=== PATIENT | male | born 1990 | race Caucasian/White ===

== ENCOUNTER 2022-09-12 17:20 | Emergency (ER) | payer OTHER, SELFPAY ==
[2022-09-12] VITALS (11 sets, daily range): BP systolic 125–154; BP diastolic 67–131; PULSE 65–90; RESP 14–22; TEMP 36.4–36.5; O2SAT 87–100; BMI 27.5
--- NOTE | 2022-09-12 17:25 | ED.RN ---
PT STATES HIS INJURY IS WORK RELATED BUT HE DOES NOT WISH TO FILE WORKERS COMP. PT REQUESTS WORKERS AID.
[2022-09-12] MEDS: HYDROmorphone 1 MG/ML Syringe IV (17:37)
[2022-09-12] MEDS: Ondansetron ODT 4 MG Tablet PO (17:37)
--- NOTE | 2022-09-12 17:45 | RAD_ITS ---
EXAM: XR RIGHT ELBOW COMPLETE, 3 OR MORE VIEWS CLINICAL INDICATION: Injury/Pain TECHNIQUE: Frontal, lateral and oblique views of the right elbow. This report was created using [employer] report generation technology. COMPARISON: None. FINDINGS: BONES/JOINTS: Dislocation of the elbow. There is no displacement of the anterior or posterior fat pads. No acute fracture. No destructive or sclerotic lesions. SOFT TISSUES: Unremarkable. No soft tissue swelling or gas. No radiopaque foreign body. RAD/Elbow min 3 Views IMPRESSION: Dislocation of the elbow. Electronically Signed: Fredi Wren MD at 18:31 EDT ,
[2022-09-12] MEDS: Diphth,Pertuss(Acell),Tet Vac 0.5 ML Vial IM (18:05)
--- NOTE | 2022-09-12 18:07 | EDS_ITS ---
HPI HPI - Fall History of Present Illness Chief Complaint: Fall Detail of Chief Complaint: Patient fell from a plank. Informant: patient and EMS Occured/Mechanism Occurred: Hours Narrative: Roof height Pain/Injury Location: Right elbow Pain Location: upper extremity Quality of Pain: Dull, Aching and Throbbing Current Severity: Moderate Maximum Severity: Severe Worsened by: Movement Relieved by: Remain needing in present position of comfort Associated Symptoms Associated Symptoms: Positive for Parasthesias and Loss of function; Negative for Weakness, Inability to ambulate, Loss of consciousness or Amnesia Length of loss of consciousness: Negative Narrative Narrative: Patient is a healthy 32-year-old [id number] male. 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 The planks broke. He then hit a [address] He states he then hit the truck that was parked initially to where he was working and eventually the ground. He denies head trauma. He denies loss of consciousness. He denies being amnestic. He denies neck pain. He denies chest pain or shortness of breath. He denies low back pain. He denies lower extremity exam. Denies left upper extremity pain. He complains of right upper extremity pain and specifically is elbow. He is on no antithrombotic or anticoagulant. Tetanus is unknown. He denies allergies. He denies specifically allergy to eggs or soy products. Tetanus Immunization: Unknown Prior similar symptoms: No Recent Illness/Hospitalization: No PFSH PFSH Medical History no medical history no medical history Home Medications oxycodone-acetaminophen 5 mg-325 mg tablet 1 tab PO Q6H PRN PRN pain 5 days #20 TABLETS 09/12/22 [Rx Last Taken Unknown] Allergy/AdvReac Type Severity Reaction Status Date / Time No Known Allergies Allergy Verified 09/12/22 17:26 Surgical History (Updated 09/12/22 @ 17:26 by Le Jacobsen) History of appendectomy Surgical History no surgical history no surgical history Social History (Updated 09/12/22 @ 18:[address] Norman Rogers MD) household members: family Smoking Status: Never smoker substance use type: does not use ROS ROS ED Eyes Eyes: Denies blurry vision, change in vision or diplopia ENT ENT ED: Denies ear pain, rhinorrhea or sore throat Cardiovascular Cardiovascular: Denies chest pain or palpitations Respiratory/Chest Respiratory/Chest: Denies cough, dyspnea or dyspnea on exertion Gastrointestinal Gastrointestinal: Denies abdominal pain or vomiting Musculoskeletal Musculoskeletal: Reports other Details: Detailed in HPI narrative ; Denies arthralgias, back pain, myalgias or neck pain Integumentary Denies Abrasions Neurologic Neurologic: Reports paresthesias; Denies headache(s) Hematologic/Lymphatic Hematologic/Lymphatic: Denies easy bleeding or easy bruising EXAM Physical Exam Const Vital Signs: 09/12/22 17:21 09/12/22 17:28 09/12/22 18:31 Temperature 97.7 F L 97.7 F L 97.6 F L Temperature Source Oral Pulse Rate 68 68 Pulse Rate [1 (Initial Baseline)] Pulse Rate [2] Pulse Rate [3] Pulse Rate [4] Pulse Rate [5] Pulse Rate [6] Pulse Rate [7] Respiratory Rate 18 14 Respiratory Rate [1 (Initial Baseline)] Respiratory Rate [2] Respiratory Rate [3] Respiratory Rate [4] Respiratory Rate [5] Respiratory Rate [6] Respiratory Rate [7] Respiratory Effort Normal Non-Labored Respiratory Depth Normal Respiratory Pattern Normal Blood Pressure 138/84 H 143/82 H Blood Pressure [1 (Initial Baseline)] Blood Pressure [2] Blood Pressure [3] Blood Pressure [4] Blood Pressure [5] Blood Pressure [6] Blood Pressure [7] Blood Pressure Mean 102 Pulse Ox 100 100 99 Oxygen Delivery Method Room Air Room Air Nasal Cannula Oxygen Delivery Method [1 (Initial Baseline)] Oxygen Delivery Method [2] Oxygen Delivery Method [3] Oxygen Delivery Method [4] Oxygen Delivery Method [5] Oxygen Delivery Method [6] Oxygen Delivery Method [7] Oxygen Flow Rate (L/min) 2 Oxygen Flow Rate (L/min) [1 (Initial Baseline)] Oxygen Flow Rate (L/min) [2] Oxygen Flow Rate (L/min) [3] Oxygen Flow Rate (L/min) [4] Oxygen Flow Rate (L/min) [5] Oxygen Flow Rate (L/min) [6] Oxygen Flow Rate (L/min) [7] 09/12/22 18:31 09/12/22 18:58 09/12/22 19:06 Temperature Temperature Source Pulse Rate 65 Pulse Rate [1 (Initial Baseline)] 73 Pulse Rate [2] 76 Pulse Rate [3] 90 Pulse Rate [4] 84 Pulse Rate [5] 76 Pulse Rate [6] 68 Pulse Rate [7] 70 Respiratory Rate 18 Respiratory Rate [1 (Initial Baseline)] 20 H Respiratory Rate [2] 20 H Respiratory Rate [3] 22 H Respiratory Rate [4] 14 Respiratory Rate [5] 16 Respiratory Rate [6] 14 Respiratory Rate [7] 14 Respiratory Effort Respiratory Depth Respiratory Pattern Blood Pressure 127/70 H Blood Pressure [1 (Initial Baseline)] 154/78 H Blood Pressure [2] 154/78 H Blood Pressure [3] 153/131 H Blood Pressure [4] 153/131 H Blood Pressure [5] 140/78 H Blood Pressure [6] 125/67 H Blood Pressure [7] 125/67 H Blood Pressure Mean 89 Pulse Ox 99 Oxygen Delivery Method Nasal Cannula Room Air Oxygen Delivery Method [1 (Initial Baseline)] Nasal Cannula Oxygen Delivery Method [2] Nasal Cannula Oxygen Delivery Method [3] Non-Rebreather Oxygen Delivery Method [4] Non-Rebreather Oxygen Delivery Method [5] Non-Rebreather Oxygen Delivery Method [6] Nasal Cannula Oxygen Delivery Method [7] Nasal Cannula Oxygen Flow Rate (L/min) 98 Oxygen Flow Rate (L/min) [1 (Initial Baseline)] 24 Oxygen Flow Rate (L/min) [2] 26 Oxygen Flow Rate (L/min) [3] 6 Oxygen Flow Rate (L/min) [4] 15 Oxygen Flow Rate (L/min) [5] 15 Oxygen Flow Rate (L/min) [6] 3 Oxygen Flow Rate (L/min) [7] 3 09/12/22 19:03 09/12/22 19:08 09/12/22 20:15 Temperature Temperature Source Pulse Rate 76 Pulse Rate [1 (Initial Baseline)] Pulse Rate [2] Pulse Rate [3] Pulse Rate [4] Pulse Rate [5] Pulse Rate [6] Pulse Rate [7] Respiratory Rate 16 Respiratory Rate [1 (Initial Baseline)] Respiratory Rate [2] Respiratory Rate [3] Respiratory Rate [4] Respiratory Rate [5] Respiratory Rate [6] Respiratory Rate [7] Respiratory Effort Respiratory Depth Respiratory Pattern Blood Pressure 140/79 H Blood Pressure [1 (Initial Baseline)] Blood Pressure [2] Blood Pressure [3] Blood Pressure [4] Blood Pressure [5] Blood Pressure [6] Blood Pressure [7] Blood Pressure Mean 99 Pulse Ox 100 Oxygen Delivery Method Room Air Room Air Room Air Oxygen Delivery Method [1 (Initial Baseline)] Oxygen Delivery Method [2] Oxygen Delivery Method [3] Oxygen Delivery Method [4] Oxygen Delivery Method [5] Oxygen Delivery Method [6] Oxygen Delivery Method [7] Oxygen Flow Rate (L/min) Oxygen Flow Rate (L/min) [1 (Initial Baseline)] Oxygen Flow Rate (L/min) [2] Oxygen Flow Rate (L/min) [3] Oxygen Flow Rate (L/min) [4] Oxygen Flow Rate (L/min) [5] Oxygen Flow Rate (L/min) [6] Oxygen Flow Rate (L/min) [7] 09/12/22 21:32 09/12/22 22:09 09/12/22 23:13 Temperature Temperature Source Pulse Rate Pulse Rate [1 (Initial Baseline)] Pulse Rate [2] Pulse Rate [3] Pulse Rate [4] Pulse Rate [5] Pulse Rate [6] Pulse Rate [7] Respiratory Rate 16 17 18 Respiratory Rate [1 (Initial Baseline)] Respiratory Rate [2] Respiratory Rate [3] Respiratory Rate [4] Respiratory Rate [5] Respiratory Rate [6] Respiratory Rate [7] Respiratory Effort Respiratory Depth Respiratory Pattern Blood Pressure 139/79 H 135/92 H 128/83 H Blood Pressure [1 (Initial Baseline)] Blood Pressure [2] Blood Pressure [3] Blood Pressure [4] Blood Pressure [5] Blood Pressure [6] Blood Pressure [7] Blood Pressure Mean 99 106 98 Pulse Ox 98 99 99 Oxygen Delivery Method Room Air Room Air Room Air Oxygen Delivery Method [1 (Initial Baseline)] Oxygen Delivery Method [2] Oxygen Delivery Method [3] Oxygen Delivery Method [4] Oxygen Delivery Method [5] Oxygen Delivery Method [6] Oxygen Delivery Method [7] Oxygen Flow Rate (L/min) Oxygen Flow Rate (L/min) [1 (Initial Baseline)] Oxygen Flow Rate (L/min) [2] Oxygen Flow Rate (L/min) [3] Oxygen Flow Rate (L/min) [4] Oxygen Flow Rate (L/min) [5] Oxygen Flow Rate (L/min) [6] Oxygen Flow Rate (L/min) [7] Positive well nourished and well developed General Appearance ED: well developed and NAD HEENT Reports normocephalic and TM's normal bilaterally HEENT Narrative: There is no septal deviation hematoma. There is no dental trauma. There is no TMJ tenderness. There is no clinical findings of basilar skull fracture. atraumatic Eyes PERRL and EOMs intact bilaterally Eyes Narrative: There is no subconjunctival hemorrhage. There is no nystagmus. General Eye ED: Negative for pale conjunctiva or scleral icterus Neck full ROM, no lymphadenopathy and supple Neck Narrative: There is no midline tenderness. There is no step-off. Chest Wall inspection of chest normal and palpation of chest normal Resp normal respiratory effort, no retractions and clear to auscultation bilaterally Cardio regular rate, regular rhythm, S1 normal heart sound, S2 normal heart sound and no murmurs GI non-tender, non-distended and no masses GI Narrative: There is no tenderness specifically in the right and left costal margin region. There is no hepatosplenomegaly. Palpation: soft Back/Spine no CVA tenderness Extremity Extremity Narrative: Patient has a swollen and what appears to be deformed right elbow. Axillary, median, radial and ulnar function intact. Radial pulses palpable. Neuro oriented x3, CN's II-XII intact bilaterally, moves all extremities, no focal motor deficits and no sensory deficits noted [place] Coma Scale: document GCS findings Spontaneous Obeys Commands Oriented 15 Sensorium / Orientation: alert Motor Exam: strength 5/5 throughout Psych mental status grossly normal and thought process normal Skin Lesions: no lesions Rashes: no rashes MDM MDM MDM Narrative Medical decision making narrative: Per the [place] CT head rule and [place] rule imaging of the head is not indicated. Per Nexus criteria imaging of the neck is not required. Abdominal exam is benign. There is no evidence of abdominal trauma. Abdominal CT was not obtained. Imaging of the chest was not obtained since there is no evidence of trauma to the torso and there is no clinical findings to suspect pneumothorax. X-ray of the elbow was obtained. X-ray of the elbow reveals a posterior dislocation. Films were limited due to patient's position in splint. Since patient has no contraindication to deep sedation i.e. has not eaten since noon and last had water 2 hours prior to presentation he was consented for deep sedation using propofol. There is no allergy to soy products or egg products. He has had no prior complications. Consent form was signed. Orthopedic surgeon requested CT since the origin of the avulsed fragment is unknown and it is a significant fragment. Orthopedist was repaged. He had not heard back. We will discharge patient to home. Radiography Chest X-Ray - ED: Read by ED Physician (X-ray of the elbow is positive for dislocation. There is no evidence of fracture.) and - (Single view postreduction film was obtained. There is a displaced fragment of bone noted that was not noted on the original films. The site of avulsed fracture is undetermined.) Diagnostic Testing: Clinical Impression(s) from Imaging Studies Elbow X-Ray 09/12/22 17:45 IMPRESSION: Dislocation of the elbow. Electronically Signed: Fredi Wren MD at 18:31 EDT , Elbow X-Ray 09/12/22 19:05 IMPRESSION: There is a fracture fragment abutting the radial head. The donor site cannot be elucidated. Successful reduction. Electronically Signed: Fredi Wren MD at 19:22 EDT , Upper Extremity CT 09/12/22 20:03 IMPRESSION: There is a fracture fragment abutting the radial head. The donor site is the radial head. Electronically Signed: Fredi Wren MD at 20:50 EDT , Management Discussion w/another healthcare provider: Child Nutrition Manager (Spoke with orthopedist. Informed him that the patient had dislocation and the dislocation was reduced. After reviewing postreduction films patient is noted to have an avulsed fragment. Uncertain the origin of this fragment. Will update the orthopedist Dr. Ellison.) Treatment and Re-Evaluation Narrative: Patient reporting he feels worse. He is concerned he did something to his hip. Logrolling causes no discomfort. Is able to lift his leg up off the bed. He has no pain outpatient of the pelvis, right inguinal area or right greater trochanteric region. There is no bruising noted. There is no soft tissue swelling noted. Patient was informed he is sore because he fell from 10 feet height hitting multiple objects as he fell to the ground. Procedures Upper Extremity Splints Upper Extremity Splint: Plaster (Long arm posterior splint) Splint Fabrication: Fabricated Location: Right Procedural Sedation 1 (Initial Baseline): Consent Signed: Yes Any Problems With Anesthesia: No You/Your family experience fever (hyperthermia) w/anesthesia: No Sedation medication: Propofol Dose: 100 Route: IV Total Moderate Sedation Units: 14 (14 minutes total time) Mallampati Score: Class I ASA Classification: I Discharge Plan Triage Chief Complaint: Fall ED Provider: Norman Rogers Dx/Rx/DC Orders Clinical Impression: Closed fracture dislocation of right elbow, Injury due to fall, Abrasion of face, Contusion of multiple sites Instructions: ED Abrasion, ED Elbow Dislocation Prescriptions: New oxycodone-acetaminophen [oxycodone-acetaminophen] 5-325 mg tablet 1 tab PO Q6H PRN PRN (Reason: pain) 5 Days Qty: 20 0RF Primary Care Provider: Regis Fulton Referrals: Mario Cheung DO [[facility] Staff - Active Staff] - [address] Doctor,Out of [Non-Staff] - Activity Restrictions/Additional Instructions: Apply ice to areas of discomfort 6-10 times a day for the next 3 to 5 days. You will feel worse over the next 24 to 48 hours You will hurt in more places than you presently do Apply ice 20 to 30 minutes per application a minimum of 10 times to your right elbow. Disposition Disposition: Home, Self Care
[2022-09-12] MEDS: Propofol 200 MG/20 ML Vial IV BOLUS (18:30)
[2022-09-12] MEDS: HYDROmorphone 0.5 MG/0.5 ML SYRINGE IV ×2 (19:04→23:32)
--- NOTE | 2022-09-12 19:05 | RAD_ITS ---
STUDY: XR Elbow 2 Views REASON FOR EXAM: Male, 32 years old. POST REDUCTION. ONE IMAGE PER ER DOCTOR. TECHNIQUE: XR Elbow 2 Views RIGHT COMPARISON: Study done earlier. FINDINGS: There is a fracture fragment abutting the radial head. The donor site cannot be elucidated. Normal radiocapitellar and ulnotrochlear articulations. Anterior humeral line and radiocapitellar line are preserved. Plaster cast in place. The soft tissue structures are unremarkable. RAD/Elbow 2 Views IMPRESSION: There is a fracture fragment abutting the radial head. The donor site cannot be elucidated. Successful reduction. Electronically Signed: Fredi Wren MD at 19:22 EDT ,
--- NOTE | 2022-09-12 20:03 | CT_ITS ---
EXAM: CT RIGHT UPPER EXTREMITY WITHOUT INTRAVENOUS CONTRAST CLINICAL INDICATION: Fracture dislocation with avulsed fragment of unknown TECHNIQUE: Helically acquired images were obtained of the right upper extremity without intravenous contrast. 2-D reformats were performed by the technologist. This CT exam was performed using one or more of the following dose reduction techniques: automated exposure control, adjustment of the mA and/or kV according to patient size, and/or use of iterative reconstruction technique. This report was created using [employer] technology. RADIATION DOSE: CTDIvol = 34.24 mGy, DLP = 737.94 mGy-cm COMPARISON: None. FINDINGS: BONES/JOINTS: There is a fracture fragment abutting the radial head. The donor site is the radial head. Preservation of the joint space. No sclerotic or destructive changes. SOFT TISSUES: Unremarkable. No soft tissue swelling or gas. No radiopaque foreign body. CT/Extremity Upper without Contra IMPRESSION: There is a fracture fragment abutting the radial head. The donor site is the radial head. Electronically Signed: Fredi Wren MD at 20:50 EDT ,
--- NOTE | 2022-09-12 22:13 | ED.RN ---
PT TO CALL HIS BOSS ABOUT OBTAINING WORKERS AID FOR HIS INJURIES TODAY. PT STILL DENIES WORKERS COMP.
--- NOTE | 2022-09-12 23:47 | RAD_ITS ---
INDICATION: Injury/Pain EXAMINATION/TECHNIQUE: X-RAY - XR Hip Unilateral with Pelvis when performed; 2-3 Views COMPARISON: None. FINDINGS: PELVIC BONES: No displaced fracture, destructive or sclerotic lesions. Note that overlapping bowel shadows may however obscure fine detail. Sacroiliac joints are unremarkable. No widening of the pubic symphysis. HIPS: The articular structures are unremarkable. No displaced fracture seen in this frontal view. SOFT TISSUES: No soft tissue swelling or gas. RAD/HIP, UNI W/ Pelvis 2-3 Views IMPRESSION: No evidence of displaced pelvic or hip fracture. Electronically Signed: Jaz Plata MD at 0:17 EDT ,
== END 2022-09-13 00:14 | disposition home or self-care (01) ==
PROVIDERS: Emergency Provider Emergency Medicine; PCP Family Medicine; Visit Provider Emergency Medicine
DX: S42.401A Unspecified fracture of lower end of right humerus, initial encounter for closed fracture (principal); S00.81XA Abrasion of other part of head, initial encounter; Y99.0 Civilian activity done for income or pay; W17.89XA Other fall from one level to another, initial encounter
CPT/HCPCS: 29105; 73070; 73080; 73200; 73502; 90715; 96372; 96374; 96376; 99152; 99285; J7030

== ENCOUNTER 2023-01-19 08:30 | Outpatient (RCR) | payer SELFPAY, OTHER ==
--- NOTE | 2022-09-28 16:49 | HP.OTEVAL ---
Patient's Visit Information JASON HARP is a 32 year old M, referred to Occupational Therapy by Dr. Alban Boothe MD, with a diagnosis of closed displaced fracture of head of right radius; dislocation of R elbow. Date of Evaluation: 09/28/22 Occupational Therapist: Briana Avelar - Subjective Arrived s/p right open reduction internal fixation fracture heaad of right radius and lateral collateral ligament repair on 09/19/22 by [facility]. No pushing, pulling, lifting, or weight bearing. Wearing the hinged elbow brace with stockinette all the time except for hygiene. Lives with parents, sleeping on the first floor to avoid the stairs to bedroom due to pelvic fracture. Parents help as needed. Right hand dominant. 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 He will consult with the front load trash truck driver and then call in to schedule. Initially recommending 2x/week for 12 weeks but can adjust as needed given self-pay and recovery. - Pain R elbow 1 - ROM Shoulder: R flexed/abducted to 90 deg comfortably this date; L WNL Elbow: R active 90 to 140 deg gently, L WNL Forearm: R neutral forearm for supination, ~5-10 deg of pronation; L WNL Wrist: R ext 40, flexion 60; L WNL Opposition: able to oppose bilaterally and make full fist - Strength Delivery Clerk: L hand 95 Lateral Pinch: L 20 Tripod Pinch: L 24 Tip-to-Tip Pinch: L 11 - Edema Elbow: R 13.25 inches; L 12 inches - Sensation Sensation Comments: sensation intact, denies numbness or tingling - Quick DASH-Disab of Arm,Shoulder& Hand Quick DASH Score: 56.8175 - Rehabilitation General Assessment: Patient arrived 9 days post op for right open reduction internal fixation for fracture to right radial head and lateral collateral ligament repair (09/19/22). He arrived in a hinged elbow brace set at 70 degrees which he received 09/27/22 that he removes only for hygiene. He has minimal pain, some swelling, and bruising to the elbow region. He is ambulating with assist from a cane due to a pelvic fracture sustained from the same fall on 09/12/22. His L UE is WNL for ROM and strength. He is moving his right shoulder, hand, and wrist well and we began gentle mid range range of motion to the R elbow this date with good response and no increase in pain. He reported some stiffness when trying to pronate/supinate his forearm and general stiffness in the hand and wrist from the immobilization. Recommending 2x/week for 12 weeks to progress ROM and strengthening activities per protocol. Using the lateral collateral ligament repair-reconstruction protocol in volume 2 page 351 of the Diagnosis and Treatment Manual for Upper Extremity. Patient instructed to complete mid range ROM to elbow twice daily to start while also mobilizing shoulder, wrist, and hand to prevent stiffness. Educated on edema mgmt with elevation and icing as able or comfortable. Rehabilitation Potential: Good - Anticipated Interventions A/AAROM/PROM, Strengthening, Edema Control, Scar Care, Massage, Triggerpoint Release, Desensitization, Modalities, Orthoses, Fine Motor Coord/[place], Education re Skin Care and Precautions, Education re Self Massage Techniques, Home Program - Visit Plan Frequency: 2x /Week Duration: 3 Months General Plan: 2x/week for 12 weeks, adjust duration and frequency as needed. Follow protocol for lateral collateral ligament repair on raf [id number] in volume 2 of Diagnosis and Treatment Manual for Upper Extremity. Patient is now 9 days post op and has been instructed on starting mid range AROM, shoulder/wrist/hand ROM, gentle massage, and edema control to the elbow. Will progress per protocol. TEXT: Thank you for the opportunity to evaluate your patient. For Medicare and Medicare HMO plans, please review the plan of care and approve it. It will need to be FAXED BACK to us at [phone] for Medicare purposes. Please let me know if there are questions or concerns regarding this plan of care. Physician Signature: Date:
--- NOTE | 2022-10-19 14:38 | HP.OTEVAL ---
Patient's Visit Information JASON HARP is a 32 year old M, referred to Occupational Therapy by Dr. Alban Boothe MD, with a diagnosis of closed displaced fracture of head of right radius; dislocation of R elbow. Date of Evaluation: 09/28/22 Occupational Therapist: Briana Avelar - Subjective Arrived s/p right open reduction internal fixation fracture heaad of right radius and lateral collateral ligament repair on 09/19/22 by [facility]. No pushing, pulling, lifting, or weight bearing. Wearing the hinged elbow brace with stockinette all the time except for hygiene. Lives with parents, sleeping on the first floor to avoid the stairs to bedroom due to pelvic fracture. Parents help as needed. Right hand dominant. Patient has a flag car driver that brings him to his appointments. He will consult with the flag car driver and then call in to schedule. Initially recommending 2x/week for 12 weeks but can adjust as needed given self-pay and recovery. 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 Goal:: Patient will demonstrate improved functional ROM of R UE, evidenced by ability to complete AROM with all joints in all planes within normal limits by discharge. Goal:: Patient will be independent with home exercise program and protocol for his ligament repair. - Rehabilitation General Assessment: Patient arrived 9 days post op for right open reduction internal fixation for fracture to right radial head and lateral collateral ligament repair (09/19/22). He arrived in a hinged elbow brace set at 70 degrees which he received 09/27/22 that he removes only for hygiene. He has minimal pain, some swelling, and bruising to the elbow region. He is ambulating with assist from a cane due to a pelvic fracture sustained from the same fall on 09/12/22. His L UE is WNL for ROM and strength. He is moving his right shoulder, hand, and wrist well and we began gentle mid range range of motion to the R elbow this date with good response and no increase in pain. He reported some stiffness when trying to pronate/supinate his forearm and general stiffness in the hand and wrist from the immobilization. Recommending 2x/week for 12 weeks to progress ROM and strengthening activities per protocol. Using the lateral collateral ligament repair-reconstruction protocol in volume 2 page 351 of the Diagnosis and Treatment Manual for Upper Extremity. Patient instructed to complete mid range ROM to elbow twice daily to start while also mobilizing shoulder, wrist, and hand to prevent stiffness. Educated on edema mgmt with elevation and icing as able or comfortable. Rehabilitation Potential: Good - Anticipated Interventions A/AAROM/PROM, Strengthening, Edema Control, Scar Care, Massage, Triggerpoint Release, Desensitization, Modalities, Orthoses, Fine Motor Coord/Fortino, Education re Skin Care and Precautions, Education re Self Massage Techniques, Home Program - Visit Plan Frequency: 2x /Week Duration: 3 Months General Plan: 2x/week for 12 weeks, adjust duration and frequency as needed. Follow protocol for lateral collateral ligament repair on raf 351 in volume 2 of Diagnosis and Treatment Manual for Upper Extremity. Patient is now 9 days post op and has been instructed on starting mid range AROM, shoulder/wrist/hand ROM, gentle massage, and edema control to the elbow. Will progress per protocol. TEXT: Thank you for the opportunity to evaluate your patient. For Medicare and Medicare HMO plans, please review the plan of care and approve it. It will need to be FAXED BACK to us at [phone] for Medicare purposes. Please let me know if there are questions or concerns regarding this plan of care. Physician Signature: Date:
--- NOTE | 2022-10-26 08:54 | HP.OTREVAL ---
Dr. Alban Boothe MD, It has been my pleasure to treat JASON HARP over the last 9 visits for closed displaced fracture of head of right radius; dislocation of R elbow. Please see the progress note below for an update on the occupational therapy plan of care! Subjective: pt arrives 5 weeks and 2 days s/p from radial head ORIF and LCL repair of right elbow-. pt reports he is performing his exercise daily-. using right UE for light daily tasks pt would like to know what restrictions he has now that he will be 6 weeks s/p. Objective/Function: right elbow ROM -45/125. right forearm supination 40*. right forearm pronation 30*. 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 pt arrives at therapy tight as it is am- after therapy of AAROM/PROM and use of FES to elicit muscle contraction pt will gain 15* or so. Pt may benefit from static progressive brace. Plan Frequency: 2x /Week Duration: 3 Months Plan: will have surgeon advise on progression to strengthening/ wt.bearing etc. to return pt to PLOF. 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 Goal:: Patient will demonstrate improved functional ROM of R UE, evidenced by ability to complete AROM with all joints in all planes within normal limits by discharge. Goal:: Patient will be independent with home exercise program and protocol for his ligament repair. Anticipated Interventions Anticipated Interventions: A/AAROM/PROM, Strengthening, Edema Control, Scar Care, Massage, Triggerpoint Release, Desensitization, Modalities, Orthoses, Fine Motor Coord/Fortino, Education re Skin Care and Precautions, Education re Self Massage Techniques, Home Program Please do not hesitate to contact me at [phone] by phone or if you have questions or concerns regarding this new plan of care! Sincerely, Berenice Melara, OTR/L, CHT
--- NOTE | 2022-12-20 16:58 | OTREVAL_ITS ---
Re-Evaluation Intro: Dr. Alban Boothe MD, It has been my pleasure to treat JASON HARP over the last 16 visits for closed displaced fracture of head of right radius; dislocation of R elbow. Please see the progress note below for an update on the occupational therapy plan of care! Subjective Subjective: pt arrives with lorene elbow ext. 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 of AROM ex pt demo with right elbow ROM at -30/120 right forearm supination 50* pronation 50* fet2 peak force in lbs. left biceps 48.8lbs left triceps 42.6lbs. right biceps 46.2lbs. right triceps 36lbs right shoulder flex 27lbs. left 27.3 right shoulder extension 30.2lbs left 28.3lbs. pt has made good gains with his ROM and strength -he does still feel some weakness in his elbow pt would like to return to work without restriction if possible- advised would release him. Plan Plan Plan: pt returning to for follow-up Goals Goals Patient Goals: Regain Strength, Return to Work, Decrease Swelling/Stiffness, Improve Fine Motor Skills, Increase ROM, Be More Independent in ADLS and Resume Former Household Responsibilities (Cooking,Cleaning,Yard, etc.) Goal:: Patient will demonstrate improved functional strength of his R hand, evidenced by associate pathologist strength of no more than 15 pounds different than his L hand by d/c. Goal:: Patient will demonstrate improved functional ROM of R UE, evidenced by ability to complete AROM with all joints in all planes within normal limits by discharge. Goal:: Patient will be independent with home exercise program and protocol for his ligament repair. Anticipated Interventions Anticipated Interventions Anticipated Interventions: A/AAROM/PROM, Strengthening, Edema Control, Scar Care, Massage, Triggerpoint Release, Desensitization, Modalities, Orthoses, Fine Motor Coord/Fortino, Education re Skin Care and Precautions, Education re Self Massage Techniques and Home Program Re-Evaluation Ending Re-evaluation ending: Please do not hesitate to contact me at [phone] by phone or Fax: if you have questions or concerns regarding this new plan of care! Sincerely, Berenice Melara, OTR/L, CHT
== END 2023-01-19 19:00 | disposition home or self-care (01) ==
LOC: OT 08:30
PROVIDERS: PCP Family Medicine; Referring Provider Orthopaedic Surgery Hand Surgery; Visit Provider Orthopaedic Surgery Hand Surgery
DX: S52.121D Displaced fracture of head of right radius, subsequent encounter for closed fracture with routine healing (principal); S53.104D Unspecified dislocation of right ulnohumeral joint, subsequent encounter
CPT/HCPCS: 97110; 97140; 97165; 97530